=== PATIENT | female | born 1955 | race Two or more races ===

== ENCOUNTER 2024-05-29 07:40 | Day surgery (SDC) | payer MEDICARE, SELFPAY ==
--- NOTE | 2024-05-28 10:00 | EKG_ITS ---
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
[2024-05-28 10:47] VITALS: BMI 32.3
[2024-05-28 13:33] LABS: Basophils # (Auto) 0.1 Thou/mm3 (0.0-0.2); Basophils % (Auto) 1 % (0-2.5); Eosinophils # (Auto) 0.1 Thou/mm3 (0.0-0.5); Eosinophils % (Auto) 1 % (0-10); Hematocrit 30.3 % (36.0-46.0); Hemoglobin 9.4 g/dL (12.0-16.0); Immature Granulocytes % (Auto) 1 % (0-0); Immature Granulocytes Auto 0.11 Thou/mm3 (0.00-0.00); Lymphocytes # (Auto) 2.3 Thou/mm3 (1.0-4.8); Lymphocytes % (Auto) 23 % (10-50); Mean Corpuscular Hemoglobin 31.9 pg (25.0-35.0); Mean Corpuscular Volume 103 fL (80-100); Monocytes # (Auto) 0.6 Thou/mm3 (0.0-0.8); Monocytes % (Auto) 6 % (0-12); Neutrophils # (Auto) 6.9 Thou/mm3 (1.8-7.7); Neutrophils % (Auto) 68 % (37-80); Nucleated Red Blood Cell % 0 /100 WBC (0); Platelet Count 194 Thou/mm3 (140-440); RDW Standard Deviation 52.8 fL (36.4-46.3); Red Blood Count 2.95 Miln/mm3 (4.00-5.20); White Blood Count 10.1 Thou/mm3 (3.6-11.0)
[2024-05-28 13:37] LABS: Alanine Aminotransferase 13 U/L (10-49); Albumin, Serum 4.3 gm/dL (3.4-4.8); Albumin/Globulin Ratio 1.2 (1.2-2.2); Alkaline Phosphatase 77 U/L (46-116); Anion Gap 9 (7-16); Aspartate Amino Transferase 16 U/L (0-34); BUN/Creatinine Ratio 15 Ratio (12-20); Bilirubin,Total 0.3 mg/dL (0.3-1.2); Blood Urea Nitrogen 76 mg/dL (9-23); Calcium 10.9 mg/dL (8.3-10.6); Calcium (Corrected) 10.9 mg/dL (8.5-10.1); Carbon Dioxide 23.8 mMol/L (20.0-31.0); Chloride 110 mMol/L (98-107); Creatinine (Component) 5.1 mg/dL (0.6-1.3); Globulin 3.5 gm/dL (2.3-3.5); Glucose 50 mg/dL (74-106); Osmolality,Calculated 304 (275-295); Potassium 4.5 mMol/L (3.4-5.1); Sodium 143 mMol/L (136-145); Total Protein 7.8 gm/dL (5.7-8.2); eGFR 9 See Note
[2024-05-28 13:39] LABS: Prothrombin Time 10.9 Seconds (9.0-12.2)
[2024-05-29] VITALS (7 sets, daily range): BP systolic 110–148; BP diastolic 52–68; PULSE 63–74; RESP 15–20; TEMP 36.2–36.6; O2SAT 96–99; BMI 31.9
[2024-05-29] MEDS: SODIUM CHLORIDE 0.9% 500 ML 500 ML 20 ML IV (09:33)
--- NOTE | 2024-05-29 10:47 | SUR.PHASEI ---
1047: Pt. AAOx4, vitals stable, breathing unlabored, no complaint of pain or nausea, dressing to ABD CDI, no active bleed noted, report received from MD Munguia and Marc FELDMAN.
--- NOTE | 2024-05-29 10:54 | PD.SUROPNT ---
Date of Procedure 05/29/24 Pre Op Diagnosis End-stage renal disease requiring dialysis Post Op Diagnosis End-stage renal disease requiring dialysis Procedure Laparoscopic assisted placement of peritoneal dialysis catheter Findings Patient was noted to have significant amount of periumbilical and supraumbilical adhesions from previous operation. Omentum was adherent to anterior abdominal wall. There was no adhesions in the pelvis. Procedure Description Patient brought into the operating room in supine position. After administration of general endotracheal anesthesia, patient's abdomen was prepped and draped in standard surgical manner. An approximately 5 mm incision was made in right upper quadrant and Veress needle was inserted. Pneumoperitoneum was obtained up to 15 mmHg and the Veress needle was removed. A 5 mm trocar was placed and laparoscopic camera was inserted. Under direct visualization a laparoscopic camera a 5 mm trocar was placed in left side of the abdomen, this would be used is the exit site of the catheter. The abdomen was inspected and there were no omentum in patient's pelvis noted. Omentum was noted to be adherent to anterior abdominal wall in periumbilical and supraumbilical region. An approximately 3 cm incision was made to the left of the umbilicus and dissection was carried subcutaneous tissue. A 10 mm trocar was placed through this incision and the peritoneal dialysis catheter was placed through this trocar and advanced into patient's pelvis where there was no evidence of adhesions, the trocar was then removed. The curved end of the catheter was positioned in patient's pelvis. Using an Endo closure device a suture was placed around the catheter in suprapubic region to hold the catheter in place and prevent potential displacement of the catheter in the future. The proximal cuff of the catheter was placed posterior to anterior abdominal fascia in a pursestring suture using 0 Ethibond placed around the catheter to hold the catheter in place and prevent leakage of fluid around the catheter site. Using the tunneling device a tunnel was created in subcutaneous soft tissue and the catheter was placed in soft tissue tunnel and brought out of left abdominal trocar site. The distal cuff was placed in soft tissue. The catheter was flushed with heparinized saline, fluid was being flushed and aspirated without difficulty. Pneumoperitoneum was evacuated and trocars removed. The incisions closed 4-0 Monocryl in subcuticular fashion. Instruments, needles and sponge counts were reported to be correct ?2. Patient tolerated the procedure well, was extubated, breathing spontaneously and without difficulty and was transferred to postanesthesia care in stable condition. Anesthesia GETA and local Pathology / specimen None Estimated Blood Loss 2 Condition Stable Disposition PACU Surgeon Abby Rosas MD Surgical Staff Operation Date: 05/29/24 10:45 Case Staff Anesthesiologist: Matt Munguia RN First Assistant: Sarah Dodson
--- NOTE | 2024-05-29 11:40 | SUR.PHASEII ---
1140: Pt. AAOx4, vitals stable, breathing unlabored, no complaint of pain or nausea, dressing to ABD CDI, no active bleed noted, pt. tolerated sips of water well, pt. ambulated to wheelchair with steady gait and no assist, no complications. Gave discharge instructions to the pt. and her ride, both verbalized understanding and had no further questions. Pt. left with all personal belongings.
== END 2024-05-29 11:40 | disposition home or self-care (01) ==
PROVIDERS: PCP Internal Medicine Hospice and Palliative Medicine; Referring Provider Surgery; Visit Provider Surgery
PROC: 0WHG43Z Insertion of Infusion Device into Peritoneal Cavity, Percutaneous Endoscopic Approach (ICD-10-PCS; CPT 49324; principal; 2024-05-29 10:45)
DX: E11.22 Type 2 diabetes mellitus with diabetic chronic kidney disease (principal); I12.0 Hypertensive chronic kidney disease with stage 5 chronic kidney disease or end stage renal disease; Z99.2 Dependence on renal dialysis; N18.6 End stage renal disease; Z01.810 Encounter for preprocedural cardiovascular examination; E78.00 Pure hypercholesterolemia, unspecified
CPT/HCPCS: 49324; 36415; 80053; 84132; 85025; 85610; 93005; A4649; C1750; J0690; J1100; J1643; J2405; J2704; J3010; J3490; J7040; J1644